=== PATIENT | male | born 1975 | race Caucasian/White ===

== ENCOUNTER 2018-05-02 12:19 | Inpatient (IN) | payer OTHER ==
[~2018-05-02] VITALS: Ht 182.9 cm; Wt 124.6 kg
[2018-05-02] MEDS ORDERED: THIAMINE 100 MG in SODIUM CHLORIDE 0.9% 50 ML IVPB ONE (13:00)
[2018-05-02] MEDS ORDERED: SODIUM CHLORIDE 0.9% 1,000ML IVBOLUS ONE ×2 (13:00→14:30)
[2018-05-02] MEDS ORDERED: SODIUM CHLORIDE FLUSH 10ML SYR IVF ONE (13:00)
[2018-05-02] MEDS ORDERED: CHLORDIAZEPOXIDE 25 MG CAPSULE PO ONE (13:00)
[2018-05-02 13:04] LABS: BASOPHILS # (AUTO) 0.05 x10^3/uL (0-0.1); BASOPHILS % (AUTO) 1 % (0-1); EOSINOPHILS # (AUTO) 0.03 x10^3/uL (0-0.4); EOSINOPHILS % (AUTO) 0 % (1-7); LYMPHOCYTES # (AUTO) 1.77 x10^3/uL (1-3.4); LYMPHOCYTES % (AUTO) 26 % (22-44); MD NO; MEAN CORPUSCULAR HEMOGLOBIN 29.6 pg (27.5-34.5); MEAN CORPUSCULAR HGB CONC 33.8 g/dL (33.2-36.2); MEAN CORPUSCULAR VOLUME 87.7 fL (81-97); MEAN PLATELET VOLUME 7.6 fL (7.4-10.4); MONOCYTES # (AUTO) 0.37 x10^3/uL (0.2-0.8); MONOCYTES % (AUTO) 5 % (2-9); NEUTROPHILS # (AUTO) 4.59 x10^3/uL (1.8-6.8); NEUTROPHILS % (AUTO) 68 % (42-75); PLATELET COUNT 230 x10^3/uL (130-400); RED BLOOD COUNT 5.39 x10^6/uL (4.38-5.82)
[2018-05-02] MEDS ORDERED: CHLORDIAZEPOXIDE 25 MG CAPSULE ONE (13:35)
[2018-05-02] MEDS ORDERED: LORazepam 2 MG/ML, 1ML ONE (13:36)
[2018-05-02] MEDS: LORazepam 2 MG/ML, 1ML IVPush PRN ×3 (13:39→14:46)
[2018-05-02 14:10] LABS: ALANINE AMINOTRANSFERASE 78 U/L (12-78); ALBUMIN 3.6 g/dL (3.4-5.0); ANION GAP 18 mmol/L (5-15); CALCIUM 8.5 mg/dL (8.5-10.1); CHLORIDE 102 mmol/L (98-107); CREATININE 0.89 mg/dL (0.7-1.3)
[2018-05-02 14:12] LABS: ALKALINE PHOSPHATASE 69 U/L (45-117); BILIRUBIN,TOTAL 1.3 mg/dL (0.2-1.0); TOTAL PROTEIN 8.4 g/dL (6.4-8.2)
[2018-05-02] MEDS ORDERED: MAGNESIUM SULFATE PMX 2GM/50ML 50 ML IV ONE (14:30)
[2018-05-02 14:45] LABS: ACETONE, SERUM Small (20mg/dL) mg/dL (Negative)
[2018-05-02] MEDS ORDERED: ONDANSETRON 2MG/ML, 2ML IVPush PRN (15:30)
[2018-05-02] MEDS ORDERED: BISACODYL 10 MG SUPP PR PRN (15:30)
[2018-05-02] MEDS ORDERED: POLYETHYLENE GLYCOL 17 GM PACKET PO PRN (15:30)
[2018-05-02] MEDS ORDERED: ONDANSETRON ODT 4 MG PO PRN (15:30)
[2018-05-02] MEDS ORDERED: LABETALOL 5MG/ML, 20ML IVPush PRN (15:30)
[2018-05-02] MEDS ORDERED: LORazepam 1MG TABLET PO PRN ×2 (15:30)
[2018-05-02] MEDS ORDERED: ENALAPRILAT 1.25 MG/ML, 2ML IVPush PRN (15:30)
[2018-05-02] MEDS ORDERED: DOCUSATE 100 MG CAPSULE PO PRN (15:30)
[2018-05-02] MEDS ORDERED: hydrALAzine 20 MG/ML, 1ML IVPush PRN (15:30)
[2018-05-02] MEDS ORDERED: LORazepam 2 MG/ML, 1ML IV PRN ×2 (15:30)
[2018-05-02] MEDS ORDERED: LORazepam 0.5MG TABLET PO PRN (15:30)
[2018-05-02] MEDS ORDERED: ACETAMINOPHEN 325 MG TABLET PO PRN (15:30)
[2018-05-02 15:45] LABS: TROPONIN I < 0.015 ng/mL (0.000-0.045)
[2018-05-02 16:46] VITALS: BP 155/89
[2018-05-02] MEDS: LORazepam 2 MG/ML, 1ML IV PRN (17:22)
[2018-05-02 18:33] VITALS: BP 143/83
[2018-05-02] MEDS: MVI ADULT IV SCH (18:35)
[2018-05-02] MEDS: [UNRECOGNIZED DRUG - OTHER] IV SCH (18:35)
[2018-05-02] MEDS: POTASSIUM CHLORIDE IV SCH (18:35)
[2018-05-02] MEDS: THIAMINE IV SCH (18:35)
[2018-05-02] MEDS: FOLIC ACID IV SCH (18:35)
[2018-05-02] MEDS: ENOXAPARIN 40 MG/0.4 ML SQ SCH (18:36)
[2018-05-02 20:28] LABS: CLOSTRIDIUM DIFFICILE ANTIGEN NEGATIVE; CLOSTRIDIUM DIFFICILE TOXIN NEGATIVE (Negative)
[2018-05-03 01:58] VITALS: BP 131/89
[2018-05-03] MEDS: LACTATED RINGERS 1,000 ML IV SCH ×3 (04:49→20:30)
[2018-05-03 05:44] LABS: BASOPHILS # (AUTO) 0.03 x10^3/uL (0-0.1); BASOPHILS % (AUTO) 1 % (0-1); EOSINOPHILS # (AUTO) 0.06 x10^3/uL (0-0.4); EOSINOPHILS % (AUTO) 1 % (1-7); LYMPHOCYTES % (AUTO) 31 % (22-44); MD NO; MEAN CORPUSCULAR HEMOGLOBIN 29.9 pg (27.5-34.5); MEAN CORPUSCULAR HGB CONC 33.8 g/dL (33.2-36.2); MEAN CORPUSCULAR VOLUME 88.6 fL (81-97); MEAN PLATELET VOLUME 7.8 fL (7.4-10.4); MONOCYTES # (AUTO) 0.54 x10^3/uL (0.2-0.8); MONOCYTES % (AUTO) 8 % (2-9); NEUTROPHILS # (AUTO) 4.14 x10^3/uL (1.8-6.8); NEUTROPHILS % (AUTO) 60 % (42-75); PLATELET COUNT 171 x10^3/uL (130-400); RED BLOOD COUNT 4.68 x10^6/uL (4.38-5.82); RED CELL DISTRIBUTION WIDTH 14.9 % (9.4-14.8)
[2018-05-03 05:49] LABS: CHLORIDE 107 mmol/L (98-107)
[2018-05-03 05:58] LABS: ALANINE AMINOTRANSFERASE 58 U/L (12-78); ALKALINE PHOSPHATASE 57 U/L (45-117); ANION GAP 9 mmol/L (5-15); BILIRUBIN,TOTAL 2.8 mg/dL (0.2-1.0); CALCIUM 8.2 mg/dL (8.5-10.1); CREATININE 0.82 mg/dL (0.7-1.3); TOTAL PROTEIN 6.9 g/dL (6.4-8.2)
[2018-05-03 06:59] VITALS: BP 136/87
[2018-05-03] MEDS: LORazepam 2 MG/ML, 1ML IV PRN ×2 (09:17→13:55)
[2018-05-03 12:24] VITALS: BP 133/88
[2018-05-03] MEDS: ENOXAPARIN 40 MG/0.4 ML SQ SCH (16:05)
[2018-05-03 19:40] VITALS: BP 139/95
[2018-05-03] MEDS: THIAMINE IV SCH (20:23)
[2018-05-03] MEDS: POTASSIUM CHLORIDE IV SCH (20:23)
[2018-05-03] MEDS: [UNRECOGNIZED DRUG - OTHER] IV SCH (20:23)
[2018-05-03] MEDS: MVI ADULT IV SCH (20:23)
[2018-05-03] MEDS: FOLIC ACID IV SCH (20:23)
[2018-05-04 01:11] VITALS: BP 148/93
[2018-05-04] MEDS: LACTATED RINGERS 1,000 ML IV SCH (06:24)
[2018-05-04 07:10] VITALS: BP 145/91
[2018-05-04] MEDS ORDERED: LOPERAMIDE 2 MG CAPSULE PO ONE (08:00)
[2018-05-04] MEDS ORDERED: LOPERAMIDE 2 MG CAPSULE PO PRN (08:00)
[2018-05-04] MEDS ORDERED: COLCHICINE 0.6 MG TABLET PO ONE (10:00)
[2018-05-04] MEDS: COLCHICINE 0.6 MG TABLET PO SCH (11:32)
[2018-05-04 12:16] VITALS: BP 136/87
[2018-05-04] MEDS: ENOXAPARIN 40 MG/0.4 ML SQ SCH (15:33)
[2018-05-04 19:04] VITALS: BP 130/85
[2018-05-05 02:18] VITALS: BP 144/94
[2018-05-05 04:32] LABS: BASOPHILS # (AUTO) 0.03 x10^3/uL (0-0.1); BASOPHILS % (AUTO) 0 % (0-1); EOSINOPHILS # (AUTO) 0.18 x10^3/uL (0-0.4); EOSINOPHILS % (AUTO) 3 % (1-7); LYMPHOCYTES # (AUTO) 1.83 x10^3/uL (1-3.4); LYMPHOCYTES % (AUTO) 30 % (22-44); MD NO; MEAN CORPUSCULAR HEMOGLOBIN 29.9 pg (27.5-34.5); MEAN CORPUSCULAR HGB CONC 33.8 g/dL (33.2-36.2); MEAN CORPUSCULAR VOLUME 88.6 fL (81-97); MEAN PLATELET VOLUME 8.3 fL (7.4-10.4); MONOCYTES # (AUTO) 0.39 x10^3/uL (0.2-0.8); MONOCYTES % (AUTO) 6 % (2-9); NEUTROPHILS # (AUTO) 3.73 x10^3/uL (1.8-6.8); NEUTROPHILS % (AUTO) 61 % (42-75); PLATELET COUNT 142 x10^3/uL (130-400); RED BLOOD COUNT 4.54 x10^6/uL (4.38-5.82); RED CELL DISTRIBUTION WIDTH 14.8 % (9.4-14.8)
[2018-05-05 04:44] LABS: ALANINE AMINOTRANSFERASE 60 U/L (12-78); ALBUMIN 2.8 g/dL (3.4-5.0); ANION GAP 10 mmol/L (5-15); CALCIUM 7.9 mg/dL (8.5-10.1); CHLORIDE 105 mmol/L (98-107)
[2018-05-05 04:46] LABS: ALKALINE PHOSPHATASE 48 U/L (45-117); BILIRUBIN,TOTAL 1.5 mg/dL (0.2-1.0); CREATININE 0.69 mg/dL (0.7-1.3); TOTAL PROTEIN 7.1 g/dL (6.4-8.2)
[2018-05-05 07:10] VITALS: BP 148/97
[2018-05-05] MEDS ORDERED: POTASSIUM CHLORIDE 20 MEQ TAB.ER.PRT PO ONE (08:00)
[2018-05-05] MEDS ORDERED: ALLO100T30 PO (08:07)
[2018-05-05] MEDS ORDERED: MULT1TAB60 PO (08:07)
[2018-05-05] MEDS ORDERED: THIA100T67 PO (08:07)
[2018-05-05] MEDS ORDERED: FOLI-17 PO (08:07)
[2018-05-05] MEDS ORDERED: LORA-446 PO (08:07)
[2018-05-05] MEDS ORDERED: COLC0.6T37 PO (08:07)
[2018-05-05] MEDS: COLCHICINE 0.6 MG TABLET PO SCH (08:53)
[2018-05-05] MEDS ORDERED: MULTIVITAMIN 1 TABLET PO SCH (09:00)
[2018-05-05] MEDS ORDERED: MAGNESIUM OXIDE 400 MG TABLET PO SCH (09:00)
[2018-05-05] MEDS ORDERED: FOLIC ACID 1 MG TABLET PO SCH (09:00)
[2018-05-05] MEDS ORDERED: THIAMINE 100MG TABLET PO SCH (09:00)
== END 2018-05-05 10:02 | disposition home or self-care (01) | DRG 641 ==
LOC: ED 14:44 → EDIP 15:46 → 4WST 16:11 → DCLOUNGE 05-05 09:53
PROVIDERS: ADMIT Family Medicine; ATTEND Family Medicine
DX: E86.0 Dehydration (principal); F10.239 Alcohol dependence with withdrawal, unspecified; R17 Unspecified jaundice; E87.6 Hypokalemia; E87.2 Acidosis; E66.9 Obesity, unspecified; E83.42 Hypomagnesemia; F12.90 Cannabis use, unspecified, uncomplicated; F41.9 Anxiety disorder, unspecified; I10 Essential (primary) hypertension; M10.9 Gout, unspecified; R00.0 Tachycardia, unspecified; Z68.37 Body mass index [BMI] 37.0-37.9, adult
CPT/HCPCS: 36415; 99285; J7121; 80053; 82010; 83735; 84100; 84484; 84550; 85025; 87324; 93005; 96365; 96375; 96376; G0378; J1650; J3411; J3480; J2060; J3475; J7030; J7120